=== PATIENT | female | born 1945 | race Caucasian/White ===

== ENCOUNTER → 2017-05-16 | Outpatient (CLI) | payer OTHER | LOC: FIMAGING 15:38 | PROVIDERS: ATTEND Internal Medicine | DX: Z12.31 Encounter for screening mammogram for malignant neoplasm of breast (principal) | CPT/HCPCS: G0202 ==

== ENCOUNTER 2017-09-26 05:35 | Observation (INO) | payer OTHER, MEDICARE ==
[2017-09-26] MEDS ORDERED: NS 1,000 ML IV ONE (05:40)
[2017-09-26] MEDS ORDERED: NITROGLYCERIN 0.4 MG BTL SL PRN ×2 (05:40→08:06)
--- NOTE | 2017-09-26 05:44 | EDPHY ---
H & P Stated Complaint: chest tightness/pressure and vertigo x1hour HPI/ROS: HPI CHIEF COMPLAINT: Chest pressure "like and elephant was sitting on my chest" HISTORY OF PRESENT ILLNESS: This patient is a 71-year-old female who is very pleasant, she arrives by ambulance to the emergency room for chest discomfort/ pressure. Patient states around 430 in the morning she went to get up to use the bathroom to urinate, after doing so she went back to bed when she laid down she got dizziness like room spinning sensation this lasted briefly. She states that she suffers from vertigo and has had this in the past. This lasted very briefly however she noticed pressure in her chest like something was sitting in the center of her chest. She states she felt nauseous with this and had bilateral palm sweatiness. She denies any numbness or tingling or focal weakness, denies headache, denies double vision or neck pain. She states that she had something like an elephant sitting on her chest. She states initially her chest pressure discomfort with 6/10 now is currently 2/10. She arrived by EMS received aspirin prior to arrival. She has never had anything like this before. Past Medical History: Vertigo, prediabetes Past Surgical History: No recent surgery Social History: Denies drugs alcohol tobacco. Family History: Noncontributory ROS REVIEW OF SYSTEMS: A comprehensive 10 point review of systems is otherwise negative aside from elements mentioned in the history of present illness. Exam Constitutional appears well nontoxic no acute distress, triage nursing summary reviewed, vital signs reviewed, awake/alert. Eyes normal conjunctivae and sclera, EOMI, PERRLA. HENT normal inspection, atraumatic, moist mucus membranes, no epistaxis, neck supple/ no meningismus, no raccoon eyes. Respiratory clear to auscultation bilaterally, normal breath sounds, no respiratory distress, no wheezing. Cardiovascular rate normal, regular rhythm, no murmur, no edema, distal pulses normal. Gastrointestinal soft, non-tender, no rebound, no guarding, normal bowel sounds, no distension, no pulsatile mass. Genitourinary no CVA tenderness. Musculoskeletal no midline vertebral tenderness, full range of motion, no calf swelling, no tenderness of extremities, no meningismus, good pulses, neurovascularly intact. Skin pink, warm, & dry, no rash, skin atraumatic. Neurologic awake, alert and oriented x 3, AAOx3, moves all 4 extremities equally, motor intact, sensory intact, CN II-XII intact, normal cerebellar, normal vision, normal speech. Psychiatric normal mood/affect. Heme/Lymph/Immune no lymphadenopathy. Differential diagnosis includes but is not limited to: ACS, atypical chest pain , pneumothorax, pneumonia, pulmonary embolism, aortic dissection, congestive heart failure, tumor, musculoskeletal pain, esophageal pain, GERD, peptic ulcer disease, pancreatitis Medical Decision Making: Plan for this patient IV establishment with EKG, troponin, basic blood work, full security shift supervisor, chest x-ray, 1 L IV fluids, full-dose aspirin which she already received, a dose of nitroglycerin to see if this improves her chest discomfort and re-evaluate. Re-evaluation: EKG interpretation by me on record in [facility] system. Impression time of EKG 5:45 a.m., sinus rhythm rate of 77 I do not appreciate acute ischemic change on this EKG there is no ST elevation no significant ST depression no significant T-wave abnormalities. Intervals are appropriate. ED x-ray chest one view: Negative for acute cardiopulmonary disease. Image interpreted by myself. 0628: Blood work is reviewed. She has a negative troponin and negative D- dimer. Her EKG is also nonischemic. Chest x-ray reviewed is unremarkable. At this time she is not having any chest pressure or discomfort. Shortly receive full-dose aspirin by EMS. Given her age, and cardiovascular risk factors which includes hypertension, pre diabetes and a age as well as a story of a pressure or"elephant sitting on her chest"we will bring her to the hospital for further cardiovascular risk stratification and will out. She has agreed for this. 0634AM: Patient re-evaluated this time. Her chest pain is gone after 1 dose of nitroglycerin. She does feel better. Her EKG is nonischemic. Troponin negative D-dimer negative. Chest x-ray unremarkable. She has agreed for hospitalization today for further evaluation of her chest discomfort. Source: Patient, EMS - Personal History Current Tetanus/Diphtheria Vaccine: Yes - Medical/Surgical History Hx Asthma: No Hx Chronic Respiratory Disease: No Hx Diabetes: No Hx Cardiac Disease: No Hx Renal Disease: No Hx Cirrhosis: No Hx Alcoholism: No Hx HIV/AIDS: No Hx Splenectomy or Spleen Trauma: No Other PMH: UTERINE CANCER/HYSTERECTOMY,TONSILS, LFOOT FUSION GREAT TOE. VERTIGO - Social History Smoking Status: Never smoked Constitutional: Initial Vital Signs Temperature (C) 36.8 C 09/26/17 05:37 Heart Rate 85 09/26/17 05:37 Respiratory Rate 16 09/26/17 05:37 Blood Pressure 160/129 H 09/26/17 05:37 O2 Sat (%) 99 09/26/17 05:37 O2 Delivery Mode Room Air Allergies/Adverse Reactions: diazepam [From Valium] Allergy (Intermediate, Verified 10/30/14 07:22) HYPERACTIVITY Home Medications: Medication Instructions Recorded Ascorbic Acid [Vitamin C 500 mg 500 mg PO DAILY 09/26/17 (*)] Aspirin [Aspirin 81mg (*)] 81 mg PO DAILY 09/26/17 C/E/Zn/Cu/OM3/DHA/EPA/LUT/ZEAX 2 each PO DAILY 09/26/17 [Preservision Areds 2 Softgel] Cholecalciferol Vit D3 [Vitamin D3 5,000 units PO DAILY 09/26/17 (*)] Multivitamins [Multivitamin (*)] 1 each PO DAILY 09/26/17 [place]-3 Fatty Acids [Fish Oil 1000 1,000 mg PO DAILY 09/26/17 mg (*)] Psyllium Husk (with Sugar) 1 each PO DAILY 09/26/17 [Metamucil Packet] Medical Decision Making - Data Points Laboratory Results: Laboratory Results 09/26/17 05:45 09/26/17 05:45 Medications Given: Discontinued Medications Sodium Chloride (Ns) 1,000 mls @ 0 mls/hr IV EDNOW ONE; Wide Open PRN Reason: Protocol Stop: 09/26/17 05:41 Last Admin: 09/26/17 05:51 Dose: 1,000 mls Nitroglycerin (Nitrostat) 0.4 mg SL Q5M PRN PRN Reason: Chest Pain Last Admin: 09/26/17 05:50 Dose: 0.4 mg Departure - Departure Disposition: [facility] Inpatient Acute Clinical Impression: Chest pain Qualifiers: Chest pain type: unspecified Qualified Code(s): R07.9 - Chest pain, unspecified Condition: Fair
--- NOTE | 2017-09-26 05:47 | CPEKG ---
Heart Rate: 77 RR Interval: 779 P-R Interval: 164 QRSD Interval: 88 QT Interval: 392 QTC Interval: 444 P Alston: 46 QRS Alston: 52 T Wave Alston: 37 EKG Severity - NORMAL ECG - EKG Impression: SINUS RHYTHM Electronically Signed By: Jacek Carrillo 26-Sep-2017 06:39:55
[2017-09-26 05:53] LABS: PLATELET COUNT 262 10^3/uL (150-400)
[2017-09-26 06:02] LABS: INR 0.91 (0.83-1.16); PROTIME(PATIENT) 12.5 SEC (12.0-15.0)
[2017-09-26 06:07] LABS: CREATINE KINASE 80 IU/L (0-156)
[2017-09-26] MEDS ORDERED: ACETAMINOPHEN 325 MG TAB PO PRN (08:01)
[2017-09-26] MEDS ORDERED: ONDANSETRON 4 MG/2 ML VIAL IVP PRN (08:01)
[2017-09-26] MEDS ORDERED: HYDROCODONE/APAP 5/325 TAB PO PRN (08:01)
[2017-09-26 08:42] VITALS: RESP 18
--- NOTE | 2017-09-26 11:54 | GHP ---
[f rep st] HISTORY AND PHYSICAL DATE OF ADMISSION: 09/26/2017 CHIEF COMPLAINT: Chest pressure. HISTORY OF PRESENT ILLNESS: A pleasant 71-year-old female with prediabetes, hyperlipidemia, and occasional vertigo, who presented with chest pressure. She went to the restroom in the middle of night and went back to bed and had an episode of vertigo. She had vertigo the night prior, which is unusual for her as she states she has only had vertigo a few times in her life. She then developed a tightness in her chest substernally. She did not have associated diaphoresis, nausea, vomiting, or shortness of breath. She noted her palms to be sweaty, but no numbness or tingling. She began to feel anxious and was taking shallow breaths. No cough. No fevers, chills, or sweats. Did travel to [place] September 03 through the . Denies PND, lower extremity edema, or pillow orthopnea. She normally exercises 5 days a week on the treadmill 30-40 minutes at 2.8 miles an hour without any chest pain or shortness of breath. She does have 12 stairs at home and does not have any symptoms with that. States she has not really exercised much since being back from [place]. No falls, slurred speech, vision changes, or weakness. No URI symptoms. She had a cardiac CT in September 2015 that had a score of 0. REVIEW OF SYSTEMS: I completed a 10-point review of systems, negative except as noted in HPI. PAST MEDICAL HISTORY: Prediabetes, hyperlipidemia, vertigo, history of a lung nodule, retinal hemorrhage, history of uterine cancer, vitamin D deficiency. PAST SURGICAL HISTORY: Breast biopsy, negative path; cataract; left foot surgery; rhinoplasty; total hysterectomy. FAMILY HISTORY: Paternal grandmother with diabetes. Father with diabetes. No CVA or MN. SOCIAL HISTORY: Lives with her in [place]. No tobacco. Drinks 2 glasses of wine 3-4 times a week. No illicit drugs. HOME MEDICATIONS: Metamucil, fish oil, multivitamin, vitamin D3 5000 units daily, 81 mg aspirin, vitamin C 500 mg daily. ALLERGIES: Valium. PHYSICAL EXAMINATION: VITAL SIGNS: Temperature afebrile. Blood pressure at admission was 160/129, now 136/59. Heart rates in the 70s, respirations 18, 99 % on room air. GENERAL: Well appearing, sitting in bed, in no acute distress. HEENT: PERRLA. EOMI. Oropharynx clear. CV: Regular rate and rhythm. No murmurs, gallops, or rubs. Reproducible components substernally with palpation. No lower extremity edema. LUNGS: Clear. No crackles, wheezing. ABDOMEN: Soft, nontender, nondistended. Positive bowel sounds. : No Garcia. MUSCULOSKELETAL: 5/5 upper and lower extremity strength. NEURO: 2-12 intact, negative protnator drift, normal sensation to touch. No facial droop. PSYCH: Alert and oriented x3. LABORATORY DATA: WBC is 3, hemoglobin 14, hematocrit 42, platelets 262. D- dimer is 0.33. Coags within normal. Sodium 141, potassium 4.1, chloride 105, carbon dioxide 25, anion gap 14, creatinine 0.8, glucose 101. A1c is 5.9. LFTs within normal. Troponin less than 0.012, x2. Chest x-ray is personally reviewed by me. No evidence of effusion or pneumonia. EKG is personally reviewed by me, normal sinus rhythm, mild ST flattening in lead III. No old to compare. ASSESSMENT AND PLAN: 1. Acute chest pressure: Differential is broad, including acid reflux, musculoskeletal, acute coronary syndrome versus pulmonary embolism. She had a negative dimer. Initial trop/EKG negative. She has a reproducible component on exam. If repeat trop negative, it is reasonable to follow up with her primary care physician for consideration of outpatient stress. It is reassuring her only risk factor is hyperlipidemia. She had a negative cardiac CT 2 years ago with score of 0. 2. Hyperlipidemia: Continue fish oil. 3. Diet: Regular. 4. Vertigo: denies recent URI. R/o acute bleed with CTH. 4. Deep venous thrombosis: Lovenox. 5. Disposition: Patient warrants observation admission given acute chest pressure, warranting telemetry and serial troponins, possible cardiac evaluation. /[id number]/MODL MTDD
[2017-09-26 11:59] VITALS: BP 128/68; PULSE 76; TEMP 98.1; O2SAT 98
--- NOTE | 2017-09-26 16:40 | GDS ---
[f rep st] DISCHARGE SUMMARY DISCHARGE DIAGNOSES: 1. Chest pressure. 2. Vertigo. 3. Prediabetes. HISTORY OF PRESENT ILLNESS: Please see history and physical dated today for HPI and full assessment. HOSPITAL COURSE BY PROBLEM: 1. Chest pressure, now resolved. Patient had a negative D-dimer. Troponins and EKG were negative f or ischemia. She had a cardiac CT 2 years ago with score of zero. I think it is reasonable that she can follow up with her primary care physician, Dr. Sawant. If symptoms recur, can consider a c ardiac stress test at that time. 2. Vertigo, now resolved. Denied any recent URI symptoms. No weakness, dysarthria. CT head here w as negative for acute hemorrhage. 3. Hyperlipidemia. Resume home medications. DISPOSITION: Patient is stable for discharge home. FOLLOWUP: 1. Dr. Sawant. 2. Consider outpatient stress test if chest pressure recurs. 3. Patient was given strict return precautions of chest pain, weakness, slurred speech, or vertigo. /[id number]/MODL
== END 2017-09-26 15:19 | disposition home or self-care (01) ==
LOC: EDUNIT# → F2W 07:55
PROVIDERS: ADMIT Family Medicine; ATTEND Internal Medicine
DX: R07.89 Other chest pain (principal); H81.393 Other peripheral vertigo, bilateral; E78.5 Hyperlipidemia, unspecified; E86.9 Volume depletion, unspecified
CPT/HCPCS: 70450; 71045; 93005; 96360; 99285; G0378

== ENCOUNTER → 2017-12-27 | Outpatient (CLI) | payer OTHER, MEDICARE | PROVIDERS: ATTEND Internal Medicine | DX: R13.10 Dysphagia, unspecified (principal) | CPT/HCPCS: 74230; 92611; G8996; G8997; G8998 ==

== ENCOUNTER → 2018-05-17 | Outpatient (CLI) | payer OTHER, MEDICARE | LOC: FIMAGING 09:10 | PROVIDERS: ATTEND Internal Medicine | DX: Z12.31 Encounter for screening mammogram for malignant neoplasm of breast (principal); Z85.42 Personal history of malignant neoplasm of other parts of uterus ==